=== PATIENT | male | born 1965 | race Caucasian/White ===

== ENCOUNTER 2016-07-14 16:01 | Emergency (ER) | payer MEDICAID ==
[2016-07-14 16:06] VITALS: RESP 16; TEMP 98.1
--- NOTE | 2016-07-14 16:36 | EDPHY ---
HPI/HX/ROS/PE/MDM Narrative: CHIEF COMPLAINT: Abdominal pain, vomiting. HISTORY OF PRESENT ILLNESS: The patient is a 51 year old male presenting with worsened abdominal pain. The patient reports pain to the upper abdomen that has has been present for months, but worsened today. He states it "feels like I'm having an ulcer". The patient has a history of reflux for which he has not been evaluated for. He has pain radiating up his esophagus. He states the pain improves when lying still. He developed vomiting today. He has some urinary hesitancy which is acute. He denies hematuria or dysuria. No fever, chills, chest pain, shortness of breath, palpitations, headache, lightheadedness. Patient does report some constipation recently. REVIEW OF SYSTEMS: Aside from elements discussed in the HPI, a comprehensive 10-point review of systems was reviewed and is negative. PAST MEDICAL HISTORY: Anxiety, Depression. SOCIAL HISTORY: Daily alcohol. Cigarette smoker. VITAL SIGNS: Reviewed by me GENERAL: Well-developed, well-nourished, resting comfortably in no respiratory distress. HEENT: Atraumatic. Eyes: No icterus, no injection. Mouth: moist mucous membranes. No erythema or lesions. Neck: supple with no adenopathy. LUNGS: Clear to auscultation bilaterally, no wheezes, rhonchi or rales. CARDIAC: Regular rate and rhythm, no rubs, murmurs or gallops. ABDOMEN: Soft, diffuse abdominal tenderness, worse in epigastric region and left upper quadrant. BACK: No CVA tenderness. EXTREMITIES: No trauma. No edema. Range of motion is normal throughout. NEURO: Alert and oriented, grossly nonfocal. SKIN: Warm and dry, no rash. PSYCHIATRIC: Normal mentation, no agitation. Portions of this note were transcribed by a biomedical service engineer. I personally performed a history, physical exam, medical decision making, and confirmed accuracy of information the transcribed note. ED Course: The patient is a 51-year-old male presenting with worsened abdominal pain. The patient has had upper abdominal pain for the past month. This pain became worse today with associated emesis. On exam the patient has diffuse abdominal tenderness, worse in the epigastric and left upper quadrant. The patient drinks alcohol daily. Plan for labs and fluids. IV was established, patient received IV fluids and 4mg Zofran and 1mg Dilaudid. My differential diagnosis includes but is not limited to gastric ulcer, gallstone disease, pancreatitis, constipation. I do not suspect appendicitis at this time. Lipase is normal. LFTs are normal. I ordered CT abdomen/pelvis. CT of the abdomen/pelvic was obtained. I viewed the images myself on the PACS system. No perforation. Some inflammation around duodenum. See the full radiology report in the imaging section. 6:30 p.m.: The patient is feeling better after Dilaudid. I discussed findings with the patient. He agrees with plan to discharge home. Patient received Protonix in the emergency department. He was discharged with instructions to take omeprazole, Zofran, and pain medications as needed. He was given referral to outpatient medicine as well as to Gastroenterology. He was advised to stop smoking cigarettes and to stop drinking alcohol. He was given instructions regarding a bland diet. MDM: Differential diagnosis for the patient's presenting complaint of upper abdominal pain and vomiting was considered including but not limited to cholecystitis, gastritis, peptic ulcers disease, constipation, pulmonary disease , bowel obstruction, and pancreatitis. - Data Points Imaging Results: Imaging Impressions Abdomen CT 07/14/16 17:14 Impression: 1. Duodenitis. No evidence of perforation or bowel obstruction. 2. Normal appendix. Findings discussed with Emergency Department physician, Maxine Chun M.D., on July 14, 2016 at 1825 hours. Laboratory Results: Laboratory Results 07/14/16 16:30 07/14/16 16:30 07/14/16 07/14/16 16:30 16:30 WBC 13.36 10^3/uL H 10^3/uL (3.80-9.50) RBC 6.19 10^6/uL 10^6/uL (4.40-6.38) Hgb 18.7 g/dL H g/dL (13.7-17.5) Hct 52.7 % H % (40.0-51.0) MCV 85.1 fL fL (81.5-99.8) MCH 30.2 pg pg (27.9-34.1) MCHC 35.5 g/dL g/dL (32.4-36.7) RDW 13.0 % % (11.5-15.2) Plt Count 321 10^3/uL 10^3/uL (150-400) MPV 11.0 fL fL (8.7-11.7) Neut % (Auto) 73.8 % % (39.3-74.2) Lymph % (Auto) 16.6 % % (15.0-45.0) [place] % (Auto) 7.2 % % (4.5-13.0) Eos % (Auto) 1.5 % % (0.6-7.6) Baso % (Auto) 0.5 % % (0.3-1.7) Nucleat RBC Rel Count 0.0 % % (0.0-0.2) Absolute Neuts (auto) 9.85 10^3/uL H 10^3/uL (1.70-6.50) Absolute Lymphs (auto) 2.22 10^3/uL 10^3/uL (1.00-3.00) Absolute Monos (auto) 0.96 10^3/uL H 10^3/uL (0.30-0.80) Absolute Eos (auto) 0.20 10^3/uL 10^3/uL (0.03-0.40) Absolute Basos (auto) 0.07 10^3/uL 10^3/uL (0.02-0.10) Absolute Nucleated RBC 0.00 10^3/uL 10^3/uL (0-0.01) Immature Gran % 0.4 % % (0.0-1.1) Immature Gran # 0.06 10^3/uL 10^3/uL (0.00-0.10) Sodium 140 mEq/L mEq/L (134-144) Potassium 3.8 mEq/L mEq/L (3.5-5.2) Chloride 99 mEq/L mEq/L (97-110) Carbon Dioxide 28 mEq/l mEq/l (22-31) Anion Gap 13 mEq/L mEq/L (8-16) BUN 17 mg/dL mg/dL (7-23) Creatinine 1.1 mg/dL mg/dL (0.7-1.3) Estimated GFR > 60 Glucose 97 mg/dL mg/dL (70-100) Calcium 10.8 mg/dL H mg/dL (8.5-10.4) Phosphorus 3.2 mg/dL mg/dL (2.5-4.5) Total Bilirubin 1.0 mg/dL mg/dL (0.1-1.4) Conjugated Bilirubin 0.4 mg/dL mg/dL (0.0-0.5) Unconjugated Bilirubin 0.6 mg/dL mg/dL (0.0-1.1) AST 34 IU/L IU/L (17-59) ALT 48 IU/L IU/L (21-72) Alkaline Phosphatase 76 IU/L IU/L (38-126) Total Protein 8.1 g/dL g/dL (6.3-8.2) Albumin 4.7 g/dL g/dL (3.5-5.0) Lipase 87.0 IU/L IU/L (23-300) Medications Given: Discontinued Medications Hydrocodone Bitart/Acetaminophen ([place]iparius 5/325mg [place]#6) 1 btl TAKEHOME EDNOW ONE Stop: 07/14/16 18:39 Last Admin: 07/14/16 18:47 Dose: 1 btl Hydrocodone Bitart/Acetaminophen (Riparius 5/325mg [place]#6) 1 btl TAKEHOME EDNOW ONE Stop: 07/14/16 18:40 Last Admin: 07/14/16 18:50 Dose: Not Given Hydromorphone HCl (Dilaudid) 1 mg IVP EDNOW ONE Stop: 07/14/16 16:50 Last Admin: 07/14/16 17:01 Dose: 1 mg Hydromorphone HCl (Dilaudid) 0.5 mg IVP EDNOW ONE Stop: 07/14/16 18:37 Last Admin: 07/14/16 18:50 Dose: Not Given Sodium Chloride (Ns) 1,000 mls @ 0 mls/hr IV ONCE ONE PRN Reason: Wide Open Stop: 07/14/16 16:49 Last Admin: 07/14/16 17:02 Dose: 1,000 mls Ondansetron HCl (Zofran) 4 mg IVP EDNOW ONE Stop: 07/14/16 16:50 Last Admin: 07/14/16 17:02 Dose: 4 mg Ondansetron HCl (Zofran Odt 4 Mg [place]ack#2) 1 btl TAKEHOME EDNOW ONE Stop: 07/14/16 18:39 Last Admin: 07/14/16 18:48 Dose: 1 btl Pantoprazole Sodium (Protonix) 40 mg IVP EDNOW ONE Stop: 07/14/16 18:30 Last Admin: 07/14/16 18:38 Dose: 40 mg General Time Seen by Provider: 07/14/16 16:22 Initial Vital Signs: Initial Vital Signs Temperature (C) 36.7 C 07/14/16 16:03 Heart Rate 82 07/14/16 16:03 Respiratory Rate 16 07/14/16 16:03 Blood Pressure 124/97 H 07/14/16 16:03 O2 Sat (%) 98 07/14/16 16:03 O2 Delivery Mode Room Air Allergies/Adverse Reactions: No Known Allergies Allergy (Verified 07/14/16 16:02) Home Medications: Medication Instructions Recorded Hydrocodone/APAP 5/325 [[place] 1 tab PO Q6H PRN #10 tab 07/14/16 5/325 (RX)] Ondansetron Odt [Zofran Odt 4 mg 4 mg PO Q4 PRN #10 tab 07/14/16 (*)] Pantoprazole Sodium [Protonix] 40 mg PO DAILY #20 tablet. 07/14/16 Departure - Departure Disposition: Home, Routine, Self-Care Clinical Impression: Duodenitis, Vomiting Abdominal pain Qualifiers: Abdominal location: epigastric Qualified Code(s): R10.13 - Epigastric pain Condition: Good Instructions: Hydrocodone/Acetaminophen (By mouth), Ondansetron (By mouth), Diet for Stomach Ulcers and Gastritis (ED), Duodenitis (ED) Additional Instructions: You CT today shows some inflammation around the duodenum. 1. Take Prilosec as directed. 2. Use Zofran for nausea and vomiting. 3. Take Riparius for severe pain. 4. You have been referred to a crew leader/control room operator and a primary care physician. Please arrange a followup appointment with either referral if you continue to have symptoms. Referrals: Cruzito Clifton MD [Medical Doctor] - As per Instructions Dequan Davison MD [Medical Doctor] - As per Instructions Prescriptions: Hydrocodone/APAP 5/325 [Riparius 5/325 (RX)] 1 tab PO Q6H PRN #10 tab PRN Reason: Pain Ondansetron Odt [Zofran Odt 4 mg (*)] 4 mg PO Q4 PRN #10 tab PRN Reason: nausea Pantoprazole Sodium [Protonix] 40 mg PO DAILY #20 tablet. Report Scribed for: Maxine Chun Report Scribed by: Daksha Cameron Date of Report: 07/14/16 Time of Report: 16:43
[2016-07-14] MEDS ORDERED: NS 1,000 ML IV ONE (16:48)
[2016-07-14] MEDS ORDERED: ONDANSETRON 4 MG/2 ML VIAL IVP ONE (16:49)
[2016-07-14] MEDS ORDERED: HYDROmorphONE/DILAUDID 1 MG/ML SYR IVP ONE ×2 (16:49→18:36)
[2016-07-14 17:03] LABS: ALANINE AMINOTRANSFERASE 48 IU/L (21-72); ALBUMIN 4.7 g/dL (3.5-5.0); ALKALINE PHOSPHATASE 76 IU/L (38-126); ANION GAP 13 mEq/L (8-16); ASPARTATE AMINOTRANSFERASE 34 IU/L (17-59); BILIRUBIN-CONJUGATED 0.4 mg/dL (0.0-0.5); BILIRUBIN-UNCONJUGATED 0.6 mg/dL (0.0-1.1); CALCIUM 10.8 mg/dL (8.5-10.4); CARBON DIOXIDE 28 mEq/l (22-31); CHLORIDE 99 mEq/L (97-110); CREATININE 1.1 mg/dL (0.7-1.3); GLOMERULAR FILTRATION RATE > 60; GLUCOSE 97 mg/dL (70-100); POTASSIUM 3.8 mEq/L (3.5-5.2); SODIUM 140 mEq/L (134-144); TOTAL PROTEIN 8.1 g/dL (6.3-8.2)
[2016-07-14 17:16] LABS: % IMMATURE GRANULYOCYTES 0.4 % (0.0-1.1); ABSOLUTE IMMATURE GRANULOCYTES 0.06 10^3/uL (0.00-0.10); ADD DIFF? NO; ADD MORPH? NO; ADD SCAN? NO; ATYPICAL LYMPHOCYTE FLAG 0 (0-99); FRAGMENT RBC FLAG 0 (0-99); HEMATOCRIT 52.7 % (40.0-51.0); HEMOGLOBIN 18.7 g/dL (13.7-17.5); LEFT SHIFT FLG 0 (0-99); LIPEMIA HEMOLYSIS FLAG 90 (0-99); MEAN CELL HEMOGLOBIN 30.2 pg (27.9-34.1); MEAN CELL HEMOGLOBIN CONCENTR. 35.5 g/dL (32.4-36.7); MEAN CELL VOLUME 85.1 fL (81.5-99.8); PLATELET CLUMPS FLAG 0 (0-99); PLATELET COUNT 321 10^3/uL (150-400); RED BLOOD CELL COUNT 6.19 10^6/uL (4.40-6.38)
[2016-07-14] MEDS ORDERED: IOPAMIDOL (ISOVUE-300) 100 ML BTL IV ONE (17:46)
[2016-07-14] MEDS ORDERED: PANTOPRAZOLE SODIUM 40 MG VIAL IVP ONE (18:29)
[2016-07-14] MEDS ORDERED: HYDROCOD/APAP 5/325 PREPACK#6 BTL TAKEHOME ONE ×2 (18:38→18:39)
[2016-07-14] MEDS ORDERED: ONDANSETRON 4MG PREPACK#2 BTL TAKEHOME ONE (18:38)
[2016-07-14 18:55] VITALS: BP 143/96; PULSE 95; O2SAT 97
== END 2016-07-14 18:54 | disposition home or self-care (01) ==
DX: K29.80 Duodenitis without bleeding (principal); F17.210 Nicotine dependence, cigarettes, uncomplicated
CPT/HCPCS: 96374; J1170; J2405; Q9967

== ENCOUNTER 2016-11-03 08:04 | Emergency (ER) | payer MEDICAID ==
[2016-11-03] MEDS ORDERED: NS 1,000 ML IV ONE (08:24)
[2016-11-03] MEDS ORDERED: ONDANSETRON 4 MG/2 ML VIAL IVP ONE (08:24)
[2016-11-03] MEDS ORDERED: LORazepam 2 MG/ML INJ IVP ONE (08:25)
--- NOTE | 2016-11-03 08:26 | EDPHY ---
H & P Time Seen by Provider: 11/03/16 08:16 HPI/ROS: CHIEF COMPLAINT: Abdominal pain HISTORY OF PRESENT ILLNESS: Patient had emergency department visit on 07/14/2016 which I personally reviewed. At that time CT scan showed duodenitis. Said he has been doing okay but has not seen a specialist because he can' t afford it. Yesterday he developed epigastric pain which he describes as severe and nonradiating. Associated with vomiting. No diarrhea. No recent travel or fever or trauma. REVIEW OF SYSTEMS: Eye: no change in vision ENT: no sore throat Cardiac: no chest pain or syncope Pulmonary: no cough or SOB Abdomen: HPI Musculoskeletal: no back pain Skin: no rash Neuro: no headache Constitutional: no fever : no urinary symptoms A comprehensive 10 point review of systems is otherwise negative aside from elements mentioned in the history of present illness. PAST MEDICAL HISTORY: Left ankle injury, anxiety and depression Social history: Daily alcohol General Appearance: Alert and conversant, cooperative. Eyes: No scleral icterus. ENT, Mouth: Normal mucous membranes. Respiratory: Normal respiratory effort, breath sounds equal, lungs are clear to auscultation. Cardiovascular: Regular rate and rhythm. Gastrointestinal: Mild diffuse tenderness but without rebound or guarding, bowel sounds are present. Male is normal. Neurological: Alert and oriented x3. Normally conversant. Face symmetric, normal movement and sensation in all extremities. Skin: Warm and dry, no rashes. Musculoskeletal: No peripheral edema and no joint swelling. Psychiatric: Moderately anxious. Emergency Department course/MDM: Zofran 4 mg IV, Ativan 1 mg IV, labs to include LFT and lipase. Normal saline hydration. 916: Patient is sleeping, lying on the floor in prone position, but says he is feeling better with less pain and no vomiting. 1145: Feels better, abdomen soft and nontender. Does not currently have indications for imaging. No McBurney's point tenderness. Smoking Status: Current every day smoker Constitutional: Initial Vital Signs Temperature (C) 36.9 C 11/03/16 08:10 Heart Rate 87 11/03/16 08:10 Respiratory Rate 20 11/03/16 08:10 Blood Pressure 136/108 H 11/03/16 08:10 O2 Sat (%) 94 11/03/16 08:10 O2 Delivery Mode Room Air Allergies/Adverse Reactions: No Known Allergies Allergy (Verified 11/03/16 08:09) Home Medications: Medication Instructions Recorded Hydrocodone/APAP 5/325 [[place] 1 tab PO Q6H PRN #10 tab 07/14/16 5/325 (RX)] Ondansetron Odt [Zofran Odt 4 mg 4 mg PO Q4 PRN #10 tab 07/14/16 (*)] Pantoprazole Sodium [Protonix] 40 mg PO DAILY #20 tablet. 07/14/16 Medical Decision Making Differential Diagnosis: Differential includes but not limited to appendicitis, pancreatitis, hepatitis, cholecystitis, bowel obstruction, intestinal perforation - Data Points Laboratory Results: Laboratory Results 11/03/16 08:21 11/03/16 08:21 11/03/16 11/03/16 08:21 08:21 WBC 15.47 10^3/uL H 10^3/uL (3.80-9.50) RBC 6.25 10^6/uL 10^6/uL (4.40-6.38) Hgb 18.9 g/dL H g/dL (13.7-17.5) Hct 52.9 % H % (40.0-51.0) MCV 84.6 fL fL (81.5-99.8) MCH 30.2 pg pg (27.9-34.1) MCHC 35.7 g/dL g/dL (32.4-36.7) RDW 13.4 % % (11.5-15.2) Plt Count 335 10^3/uL 10^3/uL (150-400) MPV 10.7 fL fL (8.7-11.7) Neut % (Auto) 74.6 % H % (39.3-74.2) Lymph % (Auto) 16.8 % % (15.0-45.0) [place] % (Auto) 7.1 % % (4.5-13.0) Eos % (Auto) 0.9 % % (0.6-7.6) Baso % (Auto) 0.3 % % (0.3-1.7) Nucleat RBC Rel Count 0.0 % % (0.0-0.2) Absolute Neuts (auto) 11.54 10^3/uL H 10^3/uL (1.70-6.50) Absolute Lymphs (auto) 2.60 10^3/uL 10^3/uL (1.00-3.00) Absolute Monos (auto) 1.10 10^3/uL H 10^3/uL (0.30-0.80) Absolute Eos (auto) 0.14 10^3/uL 10^3/uL (0.03-0.40) Absolute Basos (auto) 0.04 10^3/uL 10^3/uL (0.02-0.10) Absolute Nucleated RBC 0.00 10^3/uL 10^3/uL (0-0.01) Immature Gran % 0.3 % % (0.0-1.1) Immature Gran # 0.05 10^3/uL 10^3/uL (0.00-0.10) Sodium 141 mEq/L mEq/L (134-144) Potassium 4.1 mEq/L mEq/L (3.5-5.2) Chloride 101 mEq/L mEq/L (97-110) Carbon Dioxide 23 mEq/l mEq/l (22-31) Anion Gap 17 mEq/L H mEq/L (8-16) BUN 8 mg/dL mg/dL (7-23) Creatinine 0.9 mg/dL mg/dL (0.7-1.3) Estimated GFR > 60 Glucose 106 mg/dL H mg/dL (70-100) Calcium 9.8 mg/dL mg/dL (8.5-10.4) Total Bilirubin 1.1 mg/dL mg/dL (0.1-1.4) Conjugated Bilirubin 0.2 mg/dL mg/dL (0.0-0.5) Unconjugated Bilirubin 0.9 mg/dL mg/dL (0.0-1.1) AST 24 IU/L IU/L (17-59) ALT 40 IU/L IU/L (21-72) Alkaline Phosphatase 72 IU/L IU/L (38-126) Total Protein 7.4 g/dL g/dL (6.3-8.2) Albumin 4.2 g/dL g/dL (3.5-5.0) Lipase 87.0 IU/L IU/L (23-300) Medications Given: Discontinued Medications Sodium Chloride (Ns) 1,000 mls @ 0 mls/hr IV EDNOW ONE; Wide Open PRN Reason: Protocol Stop: 11/03/16 08:25 Last Admin: 11/03/16 08:31 Dose: 1,000 mls Lorazepam (Ativan Injection) 1 mg IVP EDNOW ONE Stop: 11/03/16 08:26 Last Admin: 11/03/16 08:32 Dose: 1 mg Ondansetron HCl (Zofran) 4 mg IVP EDNOW ONE Stop: 11/03/16 08:25 Last Admin: 11/03/16 08:31 Dose: 4 mg Departure - Departure Disposition: Home, Routine, Self-Care Clinical Impression: Abdominal pain Qualifiers: Abdominal location: generalized Qualified Code(s): R10.84 - Generalized abdominal pain Condition: Good Instructions: Acute Abdominal Pain (ED) Referrals: [facility],. [Clinic] - As per Instructions
[2016-11-03 08:29] LABS: % IMMATURE GRANULYOCYTES 0.3 % (0.0-1.1); ABSOLUTE IMMATURE GRANULOCYTES 0.05 10^3/uL (0.00-0.10); ADD DIFF? NO; ADD MORPH? NO; ADD SCAN? NO; ATYPICAL LYMPHOCYTE FLAG 10 (0-99); FRAGMENT RBC FLAG 10 (0-99); HEMATOCRIT 52.9 % (40.0-51.0); HEMOGLOBIN 18.9 g/dL (13.7-17.5); LEFT SHIFT FLG 0 (0-99); LIPEMIA HEMOLYSIS FLAG 90 (0-99); MEAN CELL HEMOGLOBIN 30.2 pg (27.9-34.1); MEAN CELL HEMOGLOBIN CONCENTR. 35.7 g/dL (32.4-36.7); MEAN CELL VOLUME 84.6 fL (81.5-99.8); MEAN PLATELET VOLUME 10.7 fL (8.7-11.7); PLATELET CLUMPS FLAG 10 (0-99); PLATELET COUNT 335 10^3/uL (150-400); RED BLOOD CELL COUNT 6.25 10^6/uL (4.40-6.38); RED CELL DISTRIBUTION WIDTH 13.4 % (11.5-15.2)
[2016-11-03 08:48] LABS: ALANINE AMINOTRANSFERASE 40 IU/L (21-72); ALBUMIN 4.2 g/dL (3.5-5.0); ALKALINE PHOSPHATASE 72 IU/L (38-126); ANION GAP 17 mEq/L (8-16); ASPARTATE AMINOTRANSFERASE 24 IU/L (17-59); BILIRUBIN,TOTAL 1.1 mg/dL (0.1-1.4); BILIRUBIN-CONJUGATED 0.2 mg/dL (0.0-0.5); BILIRUBIN-UNCONJUGATED 0.9 mg/dL (0.0-1.1); CALCIUM 9.8 mg/dL (8.5-10.4); CARBON DIOXIDE 23 mEq/l (22-31); CHLORIDE 101 mEq/L (97-110); CREATININE 0.9 mg/dL (0.7-1.3); GLOMERULAR FILTRATION RATE > 60; GLUCOSE 106 mg/dL (70-100); POTASSIUM 4.1 mEq/L (3.5-5.2); SODIUM 141 mEq/L (134-144); TOTAL PROTEIN 7.4 g/dL (6.3-8.2)
[2016-11-03 10:06] VITALS: RESP 16
[2016-11-03 12:25] VITALS: BP 111/77; PULSE 88; TEMP 98.4; O2SAT 96
== END 2016-11-03 12:01 | disposition home or self-care (01) ==
DX: R10.84 Generalized abdominal pain (principal); E86.9 Volume depletion, unspecified; F17.200 Nicotine dependence, unspecified, uncomplicated
CPT/HCPCS: 96374; J2060; J2405

== ENCOUNTER 2016-11-03 18:40 | Inpatient (IN) | payer MEDICAID ==
--- NOTE | 2016-11-03 19:42 | EDPHY ---
H & P Time Seen by Provider: 11/03/16 19:40 HPI/ROS: Chief complaint. Abdominal pain HPI. 51-year-old male here with abdominal pain. Several months ago he had duodenitis or he tells me a lesion on his duodenum. He did not get follow-up due to financial reasons. He is has abdominal pain that began yesterday. His both sides of his mid upper abdomen. Nausea vomiting without diarrhea. It is sharp and crampy. He has sense of fever and has had chills. No chest discomfort or trouble breathing. No urinary symptoms. ROS Constitutional. no fever/chills, no weakness Eyes. no problems with vision ENT. no sore throat, no nasal drainage Cardiovascular. no chest pain Respiratory. no shortness of breath, no cough Abdominal. Abdominal pain with nausea vomiting . no problems urinating MS. no calf pain/swelling, no neck/back pain, no joint pain Skin. no rash Lymph. no swollen glands Neuro. no headache, no dizziness, no difficulty walking or with speech Past Medical/Surgical History: Duodenitis, alcoholism, anxiety, depression Social History: Single, daily smoker, no alcohol Smoking Status: Current every day smoker Physical Exam: General Appearance: Alert well-developed male moderate distress vital signs show temp 37.3degrees with heart rate 117 Eyes: Pupils equal and round no pallor or injection. ENT, Mouth: Mucous membranes are moist. Respiratory: There are no retractions, lungs are clear to auscultation. Cardiovascular: Regular rate and rhythm. Gastrointestinal: Abdomen is soft with tenderness both sides of the mid abdomen. Normal bowel sounds. No masses Neurological: Awake and alert, sensory and motor exams grossly normal. Skin: Warm and dry, no rashes. Musculoskeletal: Neck is supple nontender. Extremities symmetrical, full range of motion. Psychiatric: Patient is oriented X 3, there is no agitation. Constitutional: Initial Vital Signs Temperature (C) 37.3 C 11/03/16 18:54 Heart Rate 117 H 11/03/16 18:54 Respiratory Rate 16 11/03/16 18:54 Blood Pressure 103/75 11/03/16 18:54 O2 Sat (%) 98 11/03/16 18:54 O2 Delivery Mode Room Air Allergies/Adverse Reactions: No Known Allergies Allergy (Verified 11/03/16 18:58) Home Medications: Medication Instructions Recorded Ondansetron Odt [Zofran Odt 4 mg 4 mg PO Q4 PRN #10 tab 07/14/16 (*)] Pantoprazole Sodium [Protonix] 40 mg PO DAILY #20 tablet. 07/14/16 Medical Decision Making - Diagnostics Imaging Results: Imaging Impressions Abdomen CT 11/03/16 19:48 Impression: 1. Suspect perforated duodenal ulcer with pneumoperitoneum in this patient with previously documented duodenitis. 2. Mild splenomegaly. 3. Small stable simple-appearing inferior right hepatic lobe cysts. 4. Normal appearance of the appendix. Findings were discussed with SALLIE MARTIN MD at 9:50 pm, and then with Dr. Israel Mchugh at 22:04, on 11/03/2016. CT abdomen and pelvis with IV contrast shows free air in the abdomen Procedures: IV normal saline Intravenous Invanz ED Course/Re-evaluation: On re-evaluation patient is stable. The patient and I discussed imaging and lab results. We discussed need for admission and surgery. He expresses understanding and agreement I consulted and discussed case with Dr. Mchugh, on-call for surgery, who will see the patient in the emergency department Differential Diagnosis: I considered colitis, appendicitis, diverticulitis, peptic ulcer disease. Patient has free air likely secondary to perforated viscus. - Data Points Laboratory Results: Laboratory Results 11/03/16 19:55 11/03/16 19:55 11/03/16 11/03/16 19:55 19:55 WBC 12.80 10^3/uL H 10^3/uL (3.80-9.50) RBC 5.53 10^6/uL 10^6/uL (4.40-6.38) Hgb 16.9 g/dL g/dL (13.7-17.5) Hct 48.1 % % (40.0-51.0) MCV 87.0 fL fL (81.5-99.8) MCH 30.6 pg pg (27.9-34.1) MCHC 35.1 g/dL g/dL (32.4-36.7) RDW 13.5 % % (11.5-15.2) Plt Count 220 10^3/uL D 10^3/uL (150-400) MPV 10.9 fL fL (8.7-11.7) Neut % (Auto) 82.3 % H % (39.3-74.2) Lymph % (Auto) 10.2 % L % (15.0-45.0) [place] % (Auto) 6.8 % % (4.5-13.0) Eos % (Auto) 0.1 % L % (0.6-7.6) Baso % (Auto) 0.2 % L % (0.3-1.7) Nucleat RBC Rel Count 0.0 % % (0.0-0.2) Absolute Neuts (auto) 10.54 10^3/uL H 10^3/uL (1.70-6.50) Absolute Lymphs (auto) 1.31 10^3/uL 10^3/uL (1.00-3.00) Absolute Monos (auto) 0.87 10^3/uL H 10^3/uL (0.30-0.80) Absolute Eos (auto) 0.01 10^3/uL L 10^3/uL (0.03-0.40) Absolute Basos (auto) 0.02 10^3/uL 10^3/uL (0.02-0.10) Absolute Nucleated RBC 0.00 10^3/uL 10^3/uL (0-0.01) Immature Gran % 0.4 % % (0.0-1.1) Immature Gran # 0.05 10^3/uL 10^3/uL (0.00-0.10) Sodium 133 mEq/L L mEq/L (134-144) Potassium 4.4 mEq/L mEq/L (3.5-5.2) Chloride 98 mEq/L mEq/L (97-110) Carbon Dioxide 22 mEq/l mEq/l (22-31) Anion Gap 13 mEq/L mEq/L (8-16) BUN 11 mg/dL mg/dL (7-23) Creatinine 1.0 mg/dL mg/dL (0.7-1.3) Estimated GFR > 60 Glucose 91 mg/dL mg/dL (70-100) Calcium 8.8 mg/dL mg/dL (8.5-10.4) Total Bilirubin 1.1 mg/dL mg/dL (0.1-1.4) Conjugated Bilirubin 0.2 mg/dL mg/dL (0.0-0.5) Unconjugated Bilirubin 0.9 mg/dL mg/dL (0.0-1.1) AST 20 IU/L IU/L (17-59) ALT 32 IU/L IU/L (21-72) Alkaline Phosphatase 51 IU/L IU/L (38-126) Total Protein 6.3 g/dL g/dL (6.3-8.2) Albumin 3.5 g/dL g/dL (3.5-5.0) Lipase 42.0 IU/L IU/L (23-300) Medications Given: Discontinued Medications Sodium Chloride (Ns) 1,000 mls @ 0 mls/hr IV EDNOW ONE; Wide Open PRN Reason: Protocol Stop: 11/03/16 19:49 Last Admin: 11/03/16 21:05 Dose: 1,000 mls Departure - Departure Disposition: [facility] Inpatient Acute Clinical Impression: Perforated peptic ulcer Condition: Fair Referrals: NONE *PRIMARY CARE P,. [Primary Care Provider] - As per Instructions
[2016-11-03] MEDS ORDERED: NS 1,000 ML IV ONE (19:48)
[2016-11-03 20:18] LABS: % IMMATURE GRANULYOCYTES 0.4 % (0.0-1.1); ABSOLUTE IMMATURE GRANULOCYTES 0.05 10^3/uL (0.00-0.10); ADD DIFF? NO; ADD MORPH? NO; ADD SCAN? NO; ATYPICAL LYMPHOCYTE FLAG 0 (0-99); FRAGMENT RBC FLAG 0 (0-99); HEMATOCRIT 48.1 % (40.0-51.0); HEMOGLOBIN 16.9 g/dL (13.7-17.5); LEFT SHIFT FLG 0 (0-99); LIPEMIA HEMOLYSIS FLAG 90 (0-99); MEAN CELL HEMOGLOBIN 30.6 pg (27.9-34.1); MEAN CELL HEMOGLOBIN CONCENTR. 35.1 g/dL (32.4-36.7); MEAN PLATELET VOLUME 10.9 fL (8.7-11.7); PLATELET CLUMPS FLAG 10 (0-99); PLATELET COUNT 220 10^3/uL (150-400); RED BLOOD CELL COUNT 5.53 10^6/uL (4.40-6.38); RED CELL DISTRIBUTION WIDTH 13.5 % (11.5-15.2)
[2016-11-03 20:32] LABS: ALANINE AMINOTRANSFERASE 32 IU/L (21-72); ALBUMIN 3.5 g/dL (3.5-5.0); ALKALINE PHOSPHATASE 51 IU/L (38-126); ANION GAP 13 mEq/L (8-16); ASPARTATE AMINOTRANSFERASE 20 IU/L (17-59); BILIRUBIN,TOTAL 1.1 mg/dL (0.1-1.4); BILIRUBIN-CONJUGATED 0.2 mg/dL (0.0-0.5); BILIRUBIN-UNCONJUGATED 0.9 mg/dL (0.0-1.1); CALCIUM 8.8 mg/dL (8.5-10.4); CARBON DIOXIDE 22 mEq/l (22-31); CHLORIDE 98 mEq/L (97-110); GLOMERULAR FILTRATION RATE > 60; GLUCOSE 91 mg/dL (70-100); POTASSIUM 4.4 mEq/L (3.5-5.2); SODIUM 133 mEq/L (134-144); TOTAL PROTEIN 6.3 g/dL (6.3-8.2)
[2016-11-03] MEDS ORDERED: IOPAMIDOL (ISOVUE-300) 100 ML BTL ONE (20:44)
[2016-11-03] MEDS ORDERED: ERTAPENEM 1 GM in NS 100 ML IV ONE (22:14)
[2016-11-03] MEDS ORDERED: BUPIVACAINE 0.5% 30 ML SDV ONE (22:29)
[2016-11-03] MEDS ORDERED: fentaNYL 100 MCG/2 ML INJ ONE (22:34)
[2016-11-03] MEDS ORDERED: PROPOFOL/EMULSION 500 MG/50 ML BOTTLE IV ONE (22:34)
--- NOTE | 2016-11-03 22:34 | PDGENHP ---
History and Physical - Chief Complaint Abdominal pain - History of Present Illness 51-year-old male presents for the 2nd time today with abdominal pain. Was evaluated in July with duodenitis, was asked to follow up with that point in time but due to financial reasons was unable to. Presented earlier this morning [place] [address]. Was subsequently hydrated and sent home. Returns this evening with persistent complaints of epigastric pain now worsening. Imaging in the emergency department consistent with intra-abdominal free air what appears to be a perforation in the 1st or 2nd portion of the duodenum consistent with perforated duodenal ulcer. Patient describes the pain as sharp, diffuse across the abdomen, worse in the epigastric region 9/10 in intensity History Information - Allergies/Home Medication List Allergies/Adverse Reactions: No Known Allergies Allergy (Verified 11/03/16 18:58) I have personally reviewed and updated: family history, medical history, social history, surgical history Past Medical History: Substance abuse - Surgical History Additional surgical history: Endorses having a heel surgery, no abdominal surgeries - Family History Positive for: non-pertinent - Social History Smoking Status: Current every day smoker Alcohol Use: Heavy Drug Use: Other (Endorses using IV, inhaled and pretty much every other drug) Review of Systems ROS: 10pt was reviewed & negative except for what was stated in HPI & below Physical Exam Temp Pulse Resp BP Pulse Ox 37.3 C 108 H 18 102/64 96 11/03/16 18:54 11/03/16 22:28 11/03/16 22:28 11/03/16 22:28 11/03/16 22:28 Constitutional: unkempt, cachectic, other (Distressed) Eyes: PERRL, anicteric sclera, EOMI Ears, Nose, Mouth, Throat: hearing normal, dry mucous membranes Cardiovascular: no murmur, rub, or gallop, other (Tachycardic) Respiratory: no respiratory distress, no rales or rhonchi, clear to auscultation Gastrointestinal: other (Soft, distended, guarding, rebound) Skin: warm, normal color, no rashes or abrasions, no fluctuance, no induration, No mottled Musculoskeletal: full muscle strength, no muscle tenderness, normal joint ROM, no joint effusions Neurologic: AAOx3 Psychiatric: interacting appropriately Lymph, Heme, Immunologic: no cervical LAD Lab Data & Imaging Review 11/03/16 19:55 11/03/16 19:55 WBC 12.80 10^3/uL (3.80-9.50) H 11/03/16 19:55 RBC 5.53 10^6/uL (4.40-6.38) 11/03/16 19:55 Hgb 16.9 g/dL (13.7-17.5) 11/03/16 19:55 Hct 48.1 % (40.0-51.0) 11/03/16 19:55 MCV 87.0 fL (81.5-99.8) 11/03/16 19:55 MCH 30.6 pg (27.9-34.1) 11/03/16 19:55 MCHC 35.1 g/dL (32.4-36.7) 11/03/16 19:55 RDW 13.5 % (11.5-15.2) 11/03/16 19:55 Plt Count 220 10^3/uL (150-400) D 11/03/16 19:55 MPV 10.9 fL (8.7-11.7) 11/03/16 19:55 Neut % (Auto) 82.3 % (39.3-74.2) H 11/03/16 19:55 Lymph % (Auto) 10.2 % (15.0-45.0) L 11/03/16 19:55 [place] % (Auto) 6.8 % (4.5-13.0) 11/03/16 19:55 Eos % (Auto) 0.1 % (0.6-7.6) L 11/03/16 19:55 Baso % (Auto) 0.2 % (0.3-1.7) L 11/03/16 19:55 Nucleat RBC Rel Count 0.0 % (0.0-0.2) 11/03/16 19:55 Absolute Neuts (auto) 10.54 10^3/uL (1.70-6.50) H 11/03/16 19:55 Absolute Lymphs (auto) 1.31 10^3/uL (1.00-3.00) 11/03/16 19:55 Absolute Monos (auto) 0.87 10^3/uL (0.30-0.80) H 11/03/16 19:55 Absolute Eos (auto) 0.01 10^3/uL (0.03-0.40) L 11/03/16 19:55 Absolute Basos (auto) 0.02 10^3/uL (0.02-0.10) 11/03/16 19:55 Absolute Nucleated RBC 0.00 10^3/uL (0-0.01) 11/03/16 19:55 Immature Gran % 0.4 % (0.0-1.1) 11/03/16 19:55 Immature Gran # 0.05 10^3/uL (0.00-0.10) 11/03/16 19:55 Sodium 133 mEq/L (134-144) L 11/03/16 19:55 Potassium 4.4 mEq/L (3.5-5.2) 11/03/16 19:55 Chloride 98 mEq/L (97-110) 11/03/16 19:55 Carbon Dioxide 22 mEq/l (22-31) 11/03/16 19:55 Anion Gap 13 mEq/L (8-16) 11/03/16 19:55 BUN 11 mg/dL (7-23) 11/03/16 19:55 Creatinine 1.0 mg/dL (0.7-1.3) 11/03/16 19:55 Estimated GFR > 60 11/03/16 19:55 Glucose 91 mg/dL (70-100) 11/03/16 19:55 Calcium 8.8 mg/dL (8.5-10.4) 11/03/16 19:55 Total Bilirubin 1.1 mg/dL (0.1-1.4) 11/03/16 19:55 Conjugated Bilirubin 0.2 mg/dL (0.0-0.5) 11/03/16 19:55 Unconjugated Bilirubin 0.9 mg/dL (0.0-1.1) 11/03/16 19:55 AST 20 IU/L (17-59) 11/03/16 19:55 ALT 32 IU/L (21-72) 11/03/16 19:55 Alkaline Phosphatase 51 IU/L (38-126) 11/03/16 19:55 Total Protein 6.3 g/dL (6.3-8.2) 11/03/16 19:55 Albumin 3.5 g/dL (3.5-5.0) 11/03/16 19:55 Lipase 42.0 IU/L (23-300) 11/03/16 19:55 Visualized and Interpreted imaging results: Yes Interpretation: CT scan, images personally reviewed. Intra-abdominal free air with what appears to be perforation of the 1st portion of the duodenum Assessment & Plan Assessment: Perforated peptic ulcer (Acute) Plan: 51-year-old male with perforated duodenal ulcer. We will plan to proceed to the operating room emergently for exploration and Aly patch closure. Discussed alcohol abstinence. Also discussed that the patient will be on lifelong antacids. Will need to workup likelihood of H pylori and treat postoperatively. Discussed with the patient that he will be NPO for a few days until we can demonstrate that the ulcer has healed.
[2016-11-03] MEDS ORDERED: PANTOPRAZOLE SODIUM 40 MG in NS 100 ML IV SCH (22:45)
[2016-11-03] MEDS ORDERED: MIDAZOLAM 2 MG/2 ML VIAL IVP ONE (22:56)
--- NOTE | 2016-11-03 22:56 | PDANEPAE ---
ANE History of Present Illness perforated duodenal ulcer here for emergent ex lap ANE Past Medical History - Cardiovascular History Hx Hypertension: No Hx Arrhythmias: No Hx Chest Pain: No Hx Coronary Artery / Peripheral Vascular Disease: No Hx CHF / Valvular Disease: No Hx Palpitations: No - Pulmonary History Hx COPD: No Hx Asthma/Reactive Airway Disease: No Hx Recent Upper Respiratory Infection: No Hx Oxygen in Use at Home: No Hx Sleep Apnea: No - Neurologic History Hx Cerebrovascular Accident: No Hx Seizures: No Hx Dementia: No - Endocrine History Hx Diabetes: No Hypothyroid: No Hyperthyroid: No Obesity: no - Renal History Hx Renal Disorders: No - Liver History Hx Hepatic Disorders: No - Neurological & Psychiatric Hx Hx Neurological and Psychiatric Disorders: No - Cancer History Hx Cancer: No - Congenital Disorder History Hx Congenital Disorders: No - GI History Hx Gastrointestinal Disorders: No - Surgical History Prior Surgeries: heel surgery ANE Review of Systems Review of systems is: negative - Exercise capacity Exercise capacity: >=4 METS ANE Patient History - Allergies Allergies/Adverse Reactions: No Known Allergies Allergy (Verified 11/03/16 18:58) - Smoking Hx Smoking Status: Current every day smoker - Alcohol Use Alcohol Use: Heavy ANE Labs/Vital Signs - Labs Result Diagrams: 11/03/16 19:55 11/03/16 19:55 - Vital Signs Blood Pressure: 102/64 Heart Rate: 108 Respiratory Rate: 18 O2 Sat (%): 96 Height: 182.88 cm Weight: 86.183 kg ANE Physical Exam - Airway Neck exam: FROM Mallampati Score: Class 1 Mouth exam: poor dentition - Pulmonary Pulmonary: no respiratory distress - Cardiovascular Cardiovascular: regular rate and rhythym - ASA Status ASA Status: II, E
[2016-11-03] MEDS ORDERED: MIDAZOLAM 2 MG/2 ML VIAL ONE (22:57)
[2016-11-03] MEDS ORDERED: LR 1,000 ML IV SCH (23:00)
[2016-11-03] MEDS ORDERED: BACITRACIN 50,000 UNITS/10 ML SYR IRR ONE (23:02)
[2016-11-03] MEDS ORDERED: METHYLENE BLUE 0.5% 50 MG/10 ML AMP ONE (23:02)
[2016-11-03] MEDS ORDERED: BUPIVACAINE/EPI 0.25% 30 ML SDV ONE (23:13)
[2016-11-03] MEDS ORDERED: ONDANSETRON 4 MG/2 ML VIAL IVP PRN (23:32)
[2016-11-03] MEDS ORDERED: DEXAMETHASONE 4 MG/ML VIAL IVP PRN (23:32)
[2016-11-03] MEDS ORDERED: PROMETHAZINE HCL 25 MG/ML INJ IVP PRN (23:32)
[2016-11-03] MEDS ORDERED: NALOXONE HCL 0.4 MG/ML INJ IVP PRN (23:32)
[2016-11-03] MEDS ORDERED: fentaNYL 100 MCG/2 ML INJ IVP PRN (23:32)
[2016-11-03] MEDS ORDERED: HYDROmorphONE/DILAUDID 1 MG/ML SYR IVP PRN (23:32)
[2016-11-03] MEDS ORDERED: LR 500 ML IV PRN (23:32)
[2016-11-04] MEDS ORDERED: HYDROmorphONE/DILAUDID 2 MG/ML INJ ONE (00:03)
[2016-11-04] MEDS ORDERED: SUGAMMADEX SODIUM 200 MG/2 ML VIAL IVP ONE (00:04)
[2016-11-04] MEDS ORDERED: PHENYLEPHRINE HCL 100 MCG/ML SYR ONE (00:04)
[2016-11-04] MEDS ORDERED: fentaNYL 100 MCG/2 ML INJ ONE ×2 (00:12→01:00)
[2016-11-04] MEDS ORDERED: PROPOFOL 200 MG/20 ML VIAL ONE (00:18)
[2016-11-04] MEDS ORDERED: ONDANSETRON 4 MG/2 ML VIAL IVP PRN (00:30)
[2016-11-04] MEDS ORDERED: PROMETHAZINE HCL 25 MG/ML INJ IVP PRN (00:30)
--- NOTE | 2016-11-04 00:30 | POSTOPPROG ---
Post Op Note Date of Operation: 11/04/16 Surgeon: Israel Mchugh Anesthesiologist: Faheem Anesthesia: GET(General Endotracheal) Pre-op Diagnosis: Perforated viscus Post-op Diagnosis: Perforated duodenal ulcer Procedure: ex lap, washout, Aly patch of perfd duodenal ulcer Findings: small cm defect in ant 1st portion of duo Inf/Abcess present in the surg proc area at time of surgery?: Yes Depth: Organ Space EBL: Minimal Total fluids administered: 3000cc washout
--- NOTE | 2016-11-04 00:31 | POSTANESTH ---
Post Anesthetic Evaluation Cardiovascular Status: Normal, Stable Respiratory Status: Normal, Stable Level of Consciousness/Mental Status: Mildly Sleepy, Arousable Pain Control: Adequate, Prn Tx Ordered Nausea/Vomiting Control: Adequate, Prn Tx Ordered Complications Possibly Related to Anesthesia: None Noted
[2016-11-04] MEDS ORDERED: NALOXONE HCL 0.4 MG/ML INJ IVP PRN (00:34)
[2016-11-04] MEDS: HYDROmorphONE/DILAUDID 6 MG/30 ML PCA IV PRN (02:04)
[2016-11-04] MEDS: NS 1,000 ML IV SCH ×3 (02:16→18:34)
[2016-11-04 05:08] LABS: % IMMATURE GRANULYOCYTES 0.3 % (0.0-1.1); ABSOLUTE IMMATURE GRANULOCYTES 0.04 10^3/uL (0.00-0.10); ADD DIFF? NO; ADD MORPH? NO; ADD SCAN? NO; ATYPICAL LYMPHOCYTE FLAG 0 (0-99); FRAGMENT RBC FLAG 0 (0-99); HEMATOCRIT 42.3 % (40.0-51.0); HEMOGLOBIN 14.7 g/dL (13.7-17.5); LEFT SHIFT FLG 10 (0-99); LIPEMIA HEMOLYSIS FLAG 90 (0-99); MEAN CELL HEMOGLOBIN 30.5 pg (27.9-34.1); MEAN CELL HEMOGLOBIN CONCENTR. 34.8 g/dL (32.4-36.7); MEAN CELL VOLUME 87.8 fL (81.5-99.8); MEAN PLATELET VOLUME 10.7 fL (8.7-11.7); PLATELET CLUMPS FLAG 0 (0-99); PLATELET COUNT 181 10^3/uL (150-400); RED BLOOD CELL COUNT 4.82 10^6/uL (4.40-6.38); RED CELL DISTRIBUTION WIDTH 13.6 % (11.5-15.2)
[2016-11-04 05:36] LABS: ANION GAP 9 mEq/L (8-16); CALCIUM 8.1 mg/dL (8.5-10.4); CARBON DIOXIDE 23 mEq/l (22-31); CHLORIDE 106 mEq/L (97-110); CREATININE 0.8 mg/dL (0.7-1.3); GLOMERULAR FILTRATION RATE > 60; GLUCOSE 90 mg/dL (70-100); POTASSIUM 4.5 mEq/L (3.5-5.2); SODIUM 138 mEq/L (134-144)
--- NOTE | 2016-11-04 07:18 | GOP ---
[f rep st] OPERATIVE REPORT DATE OF OPERATION: 11/03/2016 SURGEON: Israel Mchugh MD FENCE BUILDER: None. ANESTHESIA: General endotracheal. ANESTHESIOLOGIST: Dr. Mayen. PREOPERATIVE DIAGNOSIS: Perforated viscus. POSTOPERATIVE DIAGNOSIS: Perforated duodenal ulcer. PROCEDURE PERFORMED: 1. Exploratory laparotomy. 2. Abdominal washout. 3. Omental pedicle Aly patch repair of perforated duodenal ulcer. FINDINGS: I identified an approximate 1 cm defect in the anterior portion of the 1st portion of the duodenal, distal to the pylorus. The edges appeared viable and successfully repaired it with a Aly patch of omentum. Leak test negative x2. SPECIMENS: None. ESTIMATED BLOOD LOSS: 5 cc. DESCRIPTION OF PROCEDURE: The patient was greeted in the preoperative suite. Once again, risks, benefits, and alternatives were discussed. The consent was signed. He was then brought back to the operative suite, placed on the OR table in supine position. After all anesthesia machines, including SCDs, were on and functioning, a [employer] time-out was performed. General endotracheal anesthesia was then induced without incident. Antibiotics were given on-call to the operating room. After successful induction, the patient's abdomen was widely prepped and draped in typical sterile fashion. I commenced the procedure by making a midline incision, extending it from the xiphoid all the way down to the umbilicus. I carried it down through the subcutaneous tissue and entered the abdomen sharply. Once successfully in the abdomen, I turned my attention toward the epigastrium. I identified the stomach in its transition into the duodenal. There were some fatty adhesions here from the patient's chronic inflammatory process. I took down some small thin filmy adhesions and identified a 1 cm perforation in the anterior portion of the duodenum, approximately 4 cm and probably 3 cm distal to the pylorus. Once this was identified I then inspected the remainder of the stomach and visible portions of the duodenum and found no other pathology. I then irrigated the patient's abdomen with 3 L normal saline with antibiotic impregnation. Once I was happy that the entire abdomen had been irrigated, I turned my attention back to the duodenum. Prior to my repair I identified a portion of omentum which was thick and had an adequate blood supply. Then using multiple interrupted 2-0 silk sutures, I then laid them on either side of the duodenal perforation. Over the perforation I laid my omental tongue and successfully tied the silk sutures down, noting excellent fat to serosa reapproximation. After this was done, I achieved hemostasis with some gentle pressure in the wall of the duodenum. After I was happy with that I checked the nasogastric tube placement, which was noted to be good. I then had the Anesthesiologist insufflate the nasogastric tube with air. The stomach distended, the duodenum distended, and I had no appreciable leak or air bubbles at the repair site. Once this was done, I removed the remainder of the irrigant, again inspected for any other discernible pathology. I then turned my attention toward closing. I closed the fascia with a #1 PDS in a running fashion noting excellent fascial reapproximation. Subcutaneous tissue was irrigated with warm normal saline. I instilled 0.25% Marcaine with epinephrine into the fascia and the skin was closed with amrik. Sterile dressings were placed. The patient was then extubated in the operative suite and taken to the PACU in satisfactory condition. DRAINS: None. COUNTS: All counts were reported as correct x2. /[id number]/MODL MTDD
[2016-11-04] MEDS: ERTAPENEM 1 GM in NS 100 ML IV SCH (08:35)
[2016-11-04] MEDS: PANTOPRAZOLE SODIUM 40 MG in NS 100 ML IV SCH ×2 (09:40→21:31)
[2016-11-04] MEDS ORDERED: PHENOL 177 ML THROAT SPRAY PO PRN (10:33)
[2016-11-04] MEDS ORDERED: LORazepam 2 MG/ML INJ IVP PRN (10:35)
[2016-11-04] MEDS ORDERED: LORazepam 2 MG/ML INJ IVP ONE (10:35)
--- NOTE | 2016-11-04 10:47 | SOAPPROG ---
SOAP Progress Note Assessment/Plan: Assessment/Plan: 51yo M POD#1 s/p ex-lap, repair perfd duo - Pain controlled, starting CIWA for EtOH abuse. Denies ever having withdrawal in the past and states last drink was 4 days ago. - NGT to LIWS. Strict NPO - BS Abx, H pylori pending. Have asked Dr Mosley to assist with management - OOBTC, ambulate. 11/04/16 10:43 Subjective: doing ok, wants ice chips Objective: Vital Signs Temp Pulse Resp BP Pulse Ox 36.7 C 85 18 95/74 L 99 11/04/16 07:25 11/04/16 07:25 11/04/16 07:25 11/04/16 07:25 11/04/16 07:25 Laboratory Results 11/04/16 04:52 11/04/16 04:52 11/03/16 11/04/16 11/05/16 05:59 05:59 05:59 Intake Total 3125 Output Total 1530 200 Balance 1595 -200 ICD10 Worksheet Patient Problems: Problems Problem Status Onset Perforated peptic ulcer Acute
--- NOTE | 2016-11-04 13:14 | GCON ---
[f rep st] CONSULTATION INFECTIOUS DISEASE CONSULTATION DATE OF CONSULTATION: 11/04/2016 REFERRING PHYSICIAN: Israel Mchugh MD REASON FOR CONSULTATION: Antibiotic management in the setting of perforated duodenal ulcer. HISTORY OF PRESENT ILLNESS: The patient is a 51-year-old male with a past medical history of alcoho l abuse, who I am asked to see in consultation for antibiotic management in the setting of perforate d duodenal ulcer. The patient previously had been evaluated in July with a diagnosis of duodenitis . He had been taking episodic Prilosec for the above symptoms. The patient on the day prior to his admission developed increasing epigastric pain with radiation to both shoulders. He had associated nausea with vomiting. He does not note any associated fevers. The patient has a history of signif icant alcohol intake, and notes that he has been decreasing this recently. Given his symptoms, he w as seen in the Emergency Department, where he underwent CT scan of the abdomen and pelvis, which maye wed pneumoperitoneum with enhancement of the duodenal bulb with inflammation of the surrounding fat suggestive of perforation. There were small amounts of free fluid in the pericolic gutters. The pa linda was taken to the operating room, where he underwent exploratory laparotomy with findings of pe rforated duodenal ulcer. The patient underwent patching of the duodenal ulcer and irrigation of the abdominal cavity. The patient has been empirically started on ertapenem. Given the above findings , I am now asked to assist in his ongoing management. PAST MEDICAL HISTORY: Duodenitis as outlined above, alcoholism. PAST SURGICAL HISTORY: As above. CURRENT MEDICATIONS: Ertapenem 1 g IV daily, Dilaudid VAMP MAKER, Protonix 40 mg IV twice daily. ALLERGIES: No known drug allergies. SOCIAL HISTORY: The patient smokes 4-5 cigarettes daily. He describes typically drinking one-fifth of alcohol daily, but notes he is drinking less prior to admission. He notes ongoing use of drugs including occasional smoked methamphetamine. He denies any injection drug use. FAMILY HISTORY: Noncontributory. REVIEW OF SYSTEMS: The patient notes that he has had some difficulty with his teeth recently. Unle ss otherwise noted, the remainder of a 10 system review is unremarkable. PHYSICAL EXAMINATION: VITAL SIGNS: Temperature maximum 37.7, temperature current 36.7, heart rate 85, respiratory rate 18, blood pressure 95/74, oxygen saturation 99% on 3 L. GENERAL: The patient is well nourished, well developed, in no acute distress. He appears nontoxic. HEENT: There is no scleral icterus, conjunctival injection, or conjunctival petechiae. Oropharynx shows dry mucous mem branes with dentition being in poor repair. There is no nasal discharge. There is no tenderness ov er the frontal, maxillary, or mastoid area. NECK: Supple without palpable lymphadenopathy or thyro megaly. CHEST: Clear to auscultation bilaterally without adventitious sounds. Respiratory effort is normal. CARDIOVASCULAR: Regular rate and rhythm without murmurs, gallops, or rubs. ABDOMEN: S oft, nontender, nondistended with postoperative dressing in place. No palpable organomegaly. MUSCU LOSKELETAL: No cyanosis, clubbing, or edema. SKIN: No stigmata of endocarditis. SKIN: Warm and dry to touch. LYMPHATICS: No cervical or supraclavicular nodes. NEUROLOGIC: Patient is alert and interacts appropriately with examiner. Cranial nerves 2-12 are grossly intact. Sensation is gross ly intact. Muscle tone and bulk are normal. LABORATORY DATA: White blood cell count 11.6, hematocrit 42.3, platelets 181, neutrophils 78%, crea tinine 0.8, AST 20, ALT 32, alkaline phosphatase 51, bilirubin 1.1, albumin 3.5, lipase 42. CT scan as outlined above and was reviewed and interpreted by me today. IMPRESSION: Perforated duodenal ulcer, status post patch repair with irrigation of abdomen. The pa tient is currently receiving ertapenem postoperatively, which targets typical organisms such as orop haryngeal delfina and enteric gram-negative rods. No active ongoing signs of peritonitis present. Op erative findings reviewed with Dr. Mchugh. RECOMMENDATIONS: 1. Agree with continued ertapenem, and anticipate short course of antibiotic therapy postoperativel y as long as the patient shows continued clinical improvement. 2. The patient likely will require treatment for H pylori once he has recovered. 3. HIV antibody testing in the setting of ongoing drug use. 4. We will assess hepatitis serologies also in the setting of drug use. Thank you for this consultation. We will continue to follow the patient with you. /[id number]/MODL
[2016-11-05] MEDS: NS 1,000 ML IV SCH (03:14)
[2016-11-05 05:08] LABS: % IMMATURE GRANULYOCYTES 0.4 % (0.0-1.1); ABSOLUTE IMMATURE GRANULOCYTES 0.04 10^3/uL (0.00-0.10); ADD DIFF? NO; ADD MORPH? NO; ADD SCAN? NO; ATYPICAL LYMPHOCYTE FLAG 10 (0-99); FRAGMENT RBC FLAG 0 (0-99); HEMATOCRIT 46.1 % (40.0-51.0); HEMOGLOBIN 15.6 g/dL (13.7-17.5); LEFT SHIFT FLG 0 (0-99); LIPEMIA HEMOLYSIS FLAG 90 (0-99); MEAN CELL HEMOGLOBIN 30.2 pg (27.9-34.1); MEAN CELL HEMOGLOBIN CONCENTR. 33.8 g/dL (32.4-36.7); MEAN CELL VOLUME 89.2 fL (81.5-99.8); PLATELET CLUMPS FLAG 20 (0-99); PLATELET COUNT 209 10^3/uL (150-400); RED BLOOD CELL COUNT 5.17 10^6/uL (4.40-6.38); RED CELL DISTRIBUTION WIDTH 13.3 % (11.5-15.2)
[2016-11-05 05:18] LABS: ANION GAP 12 mEq/L (8-16); CALCIUM 8.4 mg/dL (8.5-10.4); CARBON DIOXIDE 20 mEq/l (22-31); CHLORIDE 103 mEq/L (97-110); CREATININE 0.8 mg/dL (0.7-1.3); GLOMERULAR FILTRATION RATE > 60; GLUCOSE 49 mg/dL (70-100); MAGNESIUM 1.7 mg/dL (1.6-2.3); POTASSIUM 4.6 mEq/L (3.5-5.2); SODIUM 135 mEq/L (134-144)
[2016-11-05] MEDS: D5W 1/2 NS W/ 20 KCl/L 1,000 ML IV SCH ×3 (06:35→20:33)
[2016-11-05] MEDS: PANTOPRAZOLE SODIUM 40 MG in NS 100 ML IV SCH ×2 (08:17→20:33)
[2016-11-05] MEDS: ERTAPENEM 1 GM in NS 100 ML IV SCH (09:12)
[2016-11-05] MEDS: HYDROmorphONE/DILAUDID 6 MG/30 ML PCA IV PRN (10:28)
--- NOTE | 2016-11-05 11:00 | SOAPPROG ---
SOAP Progress Note Assessment/Plan: Assessment: s/p laparotomy and repair of perforated duodenal ulcer Continue NG Hypoglycemic today. Gave 1/2 amp D50 and changed IV fluids to D5 1/2 NS with 20 meq Kcl Continue Invanz - likely short coarse Awaiting HPylori S: Feeling well. No flatus O: Dressing CDI BS hypoactive/ Soft, appropriately tender Scant output in NG Clear bilaterally Regular rate Plan: 11/05/16 10:57 Objective: Vital Signs Temp Pulse Resp BP Pulse Ox 36.6 C 88 18 123/80 H 100 11/05/16 10:00 11/05/16 10:00 11/05/16 10:00 11/05/16 10:00 11/05/16 10:00 Laboratory Results 11/05/16 04:22 11/05/16 04:22 11/04/16 11/05/16 11/06/16 05:59 05:59 05:59 Intake Total 3125 2800 Output Total 1530 1600 400 Balance 1595 1200 -400 ICD10 Worksheet Patient Problems: Problems Problem Status Onset Perforated peptic ulcer Acute
[2016-11-05 13:55] LABS: HEPATITIS Bs Ab QUANT <5.0 mIU/mL
[2016-11-06 05:06] LABS: % IMMATURE GRANULYOCYTES 0.3 % (0.0-1.1); ABSOLUTE IMMATURE GRANULOCYTES 0.02 10^3/uL (0.00-0.10); ADD DIFF? NO; ADD MORPH? NO; ADD SCAN? NO; ATYPICAL LYMPHOCYTE FLAG 0 (0-99); FRAGMENT RBC FLAG 0 (0-99); HEMATOCRIT 43.4 % (40.0-51.0); HEMOGLOBIN 15.1 g/dL (13.7-17.5); LEFT SHIFT FLG 0 (0-99); LIPEMIA HEMOLYSIS FLAG 90 (0-99); MEAN CELL HEMOGLOBIN 30.2 pg (27.9-34.1); MEAN CELL HEMOGLOBIN CONCENTR. 34.8 g/dL (32.4-36.7); MEAN CELL VOLUME 86.8 fL (81.5-99.8); MEAN PLATELET VOLUME 10.2 fL (8.7-11.7); PLATELET CLUMPS FLAG 20 (0-99); PLATELET COUNT 213 10^3/uL (150-400); RED CELL DISTRIBUTION WIDTH 13.1 % (11.5-15.2)
[2016-11-06 05:31] LABS: ANION GAP 6 mEq/L (8-16); CALCIUM 8.4 mg/dL (8.5-10.4); CARBON DIOXIDE 25 mEq/l (22-31); CHLORIDE 104 mEq/L (97-110); CREATININE 0.7 mg/dL (0.7-1.3); GLOMERULAR FILTRATION RATE > 60; GLUCOSE 96 mg/dL (70-100); MAGNESIUM 1.7 mg/dL (1.6-2.3); POTASSIUM 4.1 mEq/L (3.5-5.2); SODIUM 135 mEq/L (134-144)
[2016-11-06] MEDS: PANTOPRAZOLE SODIUM 40 MG in NS 100 ML IV SCH ×2 (07:49→20:06)
[2016-11-06] MEDS: D5W 1/2 NS W/ 20 KCl/L 1,000 ML IV SCH ×3 (07:52→18:10)
[2016-11-06] MEDS: ERTAPENEM 1 GM in NS 100 ML IV SCH (08:39)
--- NOTE | 2016-11-06 11:43 | SOAPPROG ---
SOAP Progress Note Assessment/Plan: Assessment: s/p laparotomy and repair of perforated duodenal ulcer Dicontinue NG Continue Invanz - likely short course - off today or tomorrow Awaiting HPylori S: Feeling well. No flatus. eager for croatian fries or mashed potatoes O: Incision CDI BS present/ Soft, appropriately tender Clear bilaterally Regular rate Plan: 11/05/16 10:57 11/06/16 11:42 Objective: Vital Signs Temp Pulse Resp BP Pulse Ox 36.6 C 85 16 112/82 H 98 11/06/16 08:23 11/06/16 08:23 11/06/16 08:23 11/06/16 08:23 11/06/16 08:23 Laboratory Results 11/06/16 04:42 11/06/16 04:42 11/05/16 11/06/16 11/07/16 05:59 05:59 05:59 Intake Total 2800 2902.2 Output Total 1600 1550 600 Balance 1200 1352.2 -600 ICD10 Worksheet Patient Problems: Problems Problem Status Onset Perforated peptic ulcer Acute
[2016-11-06] MEDS: HYDROmorphONE/DILAUDID 6 MG/30 ML PCA IV PRN (16:10)
[2016-11-07] MEDS: D5W 1/2 NS W/ 20 KCl/L 1,000 ML IV SCH ×2 (02:19→13:42)
[2016-11-07 05:17] LABS: % IMMATURE GRANULYOCYTES 0.3 % (0.0-1.1); ABSOLUTE IMMATURE GRANULOCYTES 0.02 10^3/uL (0.00-0.10); ADD DIFF? NO; ADD MORPH? NO; ADD SCAN? NO; ANION GAP 11 mEq/L (8-16); ATYPICAL LYMPHOCYTE FLAG 20 (0-99); CALCIUM 9.1 mg/dL (8.5-10.4); CARBON DIOXIDE 25 mEq/l (22-31); CHLORIDE 103 mEq/L (97-110); CREATININE 0.8 mg/dL (0.7-1.3); FRAGMENT RBC FLAG 0 (0-99); GLOMERULAR FILTRATION RATE > 60; GLUCOSE 96 mg/dL (70-100); HEMATOCRIT 48.8 % (40.0-51.0); LEFT SHIFT FLG 0 (0-99); LIPEMIA HEMOLYSIS FLAG 90 (0-99); MAGNESIUM 1.8 mg/dL (1.6-2.3); MEAN CELL HEMOGLOBIN 30.5 pg (27.9-34.1); MEAN CELL HEMOGLOBIN CONCENTR. 34.8 g/dL (32.4-36.7); MEAN CELL VOLUME 87.6 fL (81.5-99.8); MEAN PLATELET VOLUME 10.4 fL (8.7-11.7); PLATELET CLUMPS FLAG 0 (0-99); PLATELET COUNT 268 10^3/uL (150-400); POTASSIUM 4.4 mEq/L (3.5-5.2); RED BLOOD CELL COUNT 5.57 10^6/uL (4.40-6.38); RED CELL DISTRIBUTION WIDTH 13.2 % (11.5-15.2); SODIUM 139 mEq/L (134-144)
[2016-11-07] MEDS: ERTAPENEM 1 GM in NS 100 ML IV SCH (08:28)
--- NOTE | 2016-11-07 08:59 | SOAPPROG ---
HOPE Progress Note Assessment/Plan: Assessment/Plan: 51yo M POD#4 s/p ex-lap, repair perfd duo - Pain controlled on END FINDER TWISTING DEPARTMENT, added oral [place] today. CIWA still in place although doesnt appear to be withdrawing - Abdomen is soft, incision is c/d/i, has some decent bowel sounds. Will advance to clears today - If we can get to reg diet tomorrow, likely home then. Will touch base with ID Re length of abx, H pylori still pending. 11/04/16 10:43 11/07/16 08:58 Subjective: Doing well, doesnt appear to be withdrawing from EtOH. Hungry. Objective: Vital Signs Temp Pulse Resp BP Pulse Ox 36.7 C 72 19 117/80 96 11/07/16 04:00 11/07/16 04:00 11/07/16 04:00 11/07/16 04:00 11/07/16 04:00 Laboratory Results 11/07/16 04:43 11/07/16 04:43 11/06/16 11/07/16 11/08/16 05:59 05:59 05:59 Intake Total 2902.2 3550 Output Total 1550 2600 Balance 1352.2 950 ICD10 Worksheet Patient Problems: Problems Problem Status Onset Perforated peptic ulcer Acute
[2016-11-07] MEDS: PANTOPRAZOLE SODIUM 40 MG in NS 100 ML IV SCH ×2 (09:46→21:15)
[2016-11-07] MEDS: HYDROCODONE/APAP 5/325 TAB PO PRN ×3 (15:20→22:37)
--- NOTE | 2016-11-07 19:31 | PCMIDPN ---
Assessment/Plan: Assessment/Plan: * Perforated duodenal ulcer status post repair: Clinically improved postoperatively. Now has completed 5 days of ertapenem. Will discontinue ertapenem as suspect benefit has been achieved. Will have patient follow-up with me post discharge for treatment of H pylori as high likelihood contributing. 11/07/16 19:29 Subjective: Patient feels significantly improved. Starting clear liquid diet. Objective: Vital Signs Temp Pulse Resp BP Pulse Ox 37.1 C 72 14 114/68 96 11/07/16 15:48 11/07/16 15:48 11/07/16 15:48 11/07/16 15:48 11/07/16 15:48 Laboratory Results 11/07/16 04:43 11/07/16 04:43 11/06/16 11/07/16 11/08/16 05:59 05:59 05:59 Intake Total 2902.2 3550 1596 Output Total 1550 2600 600 Balance 1352.2 950 996 Ertapenem # 5 - Physical Exam General Appearance: alert, no apparent distress EENT: pharynx normal, No scleral icterus Respiratory: lungs clear, No respiratory distress Cardiac/Chest: regular rate, rhythm Abdomen: non-tender, other ( staple line intact without erythema or drainage), No distended ICD10 Worksheet Patient Problems: Problems Problem Status Onset Perforated peptic ulcer Acute
[2016-11-08] MEDS: HYDROCODONE/APAP 5/325 TAB PO PRN (05:37)
[2016-11-08 08:25] VITALS: BP 103/65; PULSE 74; RESP 16; TEMP 97.6; O2SAT 92
--- NOTE | 2016-11-08 08:57 | SOAPPROG ---
SOAP Progress Note Assessment/Plan: Assessment/Plan: 51yo M POD#4 s/p ex-lap, repair perfd duo - Pain now well controlled with [place] alone, Rx left in patients chart - Tolerating clears, will ADAT today. Ordered fries for breakfast - If does well this AM, planning dc this afternoon. Discussed EtOH abstinence, avoidance of NSAIDS, need to take antacids and need for follow up to complete H pylori Tx 11/04/16 10:43 11/07/16 08:58 11/08/16 08:56 Subjective: Looks good, feels well. Pain controlled off PATIENT RESOURCE SPECIALIST Objective: Vital Signs Temp Pulse Resp BP Pulse Ox 36.4 C 74 16 103/65 92 11/08/16 08:23 11/08/16 08:23 11/08/16 08:23 11/08/16 08:23 11/08/16 08:23 Laboratory Results 11/07/16 04:43 11/07/16 04:43 11/07/16 11/08/16 11/09/16 05:59 05:59 05:59 Intake Total 3550 2096 Output Total 2600 600 Balance 950 1496 ICD10 Worksheet Patient Problems: Problems Problem Status Onset Perforated peptic ulcer Acute
[2016-11-08] MEDS: PANTOPRAZOLE SODIUM 40 MG in NS 100 ML IV SCH (09:15)
--- NOTE | 2016-11-08 11:39 | PDDCSUM ---
Discharge Summary Discharge Summary: DISCHARGE SUMMARY Date of Admission November 03 Date of Discharge November 08 DISCHARGE DIAGNOSES - perforated duodenal ulcer - likely active H pylori infection, pending HOSPITAL COURSE The patient was admitted from the ED and taken to the operating room where they underwent an uneventful open repair of perforated duodenum with Aly patch. They were subsequently taken to the PACU and then the general medical floor. He remained on nasogastric tube suction for 48 hours, this was then removed. His diet was advanced initially to a clear liquid diet which was well tolerated. The hospital course was uneventful, their diet was advanced to a regular diet which was well tolerated and their pain was well controlled. They were discharged home in stable condition on November 08 DISCHARGE MEDICATIONS [place] 5-325 1-2 every 4-6 as needed for pain Omeprazole 20 mg daily DISPOSITION Home FOLLOW UP Follow up with me in the office in 10-14 days for a general post-operative visit Will follow up with Dr. Mosley in the Infectious Disease office to receive his formal treatment for H pylori
== END 2016-11-08 12:55 | disposition home or self-care (01) | DRG 331 ==
LOC: F3N 11-04 01:10
PROVIDERS: ADMIT Surgery; ATTEND Surgery
PROC: 0DU90JZ Supplement Duodenum with Synthetic Substitute, Open Approach (ICD-10-PCS; principal; 2016-11-03 23:00)
DX: K26.1 Acute duodenal ulcer with perforation (principal); B96.81 Helicobacter pylori [H. pylori] as the cause of diseases classified elsewhere; F17.210 Nicotine dependence, cigarettes, uncomplicated
CPT/HCPCS: 86704-90; 96374; G0472; J1170; J1335; J2060; J2250; J2370; J2405; J2704; J3010; Q9967; Q9968

== ENCOUNTER 2018-04-21 22:57 | Emergency (ER) | payer MEDICAID ==
--- NOTE | 2018-04-22 00:14 | EDPHY ---
H & P Stated Complaint: BILAT FEET SWELLING FOR SEVERAL DAYS Time Seen by Provider: 04/22/18 00:00 HPI/ROS: HPI The patient presents with bilateral feet swelling for the last several days. Patient is homeless and walk several miles each day. He has had progressive edema with redness of both of his feet. He says his shoes do not fit well. He has been trying to change his socks daily. He has a history of a left calcaneal fracture status post ORIF about 10 years ago. He has not any fevers or chills. He has had some blisters on his feet which have opened over the last few days.. REVIEW OF SYSTEMS 10 systems were reviewed and negative with the exception of the elements mentioned in the history of present illness. PMHx: History of hand cellulitis requiring admission. History of perforated peptic ulcer Soc Hx: Homeless PHYSICAL General Appearance: Alert, no distress Eyes: Pupils equal and round no pallor or injection ENT, Mouth: Mucous membranes moist Respiratory: There are no retractions, lungs are clear to auscultation Cardiovascular: Regular rate and rhythm Gastrointestinal: Abdomen is soft and non-tender, no masses, bowel sounds normal Neurological: A&O, moves all extremities Skin: Warm and dry, no rashes Musculoskeletal: Neck is supple non tender Extremities: 1+ lower extremity edema bilaterally in the mid paulino, feet are diffusely erythematous though nontender to palpation, pulses are 2+ DP, there is no tenderness of the feet Psychiatric: Patient is oriented X 3, there is no agitation Source: Patient Exam Limitations: No limitations - Personal History Current Tetanus/Diphtheria Vaccine: Unsure Tetanus Vaccine Date: 2003 - Medical/Surgical History Hx Asthma: No Hx Chronic Respiratory Disease: No Hx Diabetes: No Hx Cardiac Disease: No Hx Renal Disease: No Hx Cirrhosis: No Hx Alcoholism: Yes Hx HIV/AIDS: No Hx Splenectomy or Spleen Trauma: No Other PMH: L ankle SURG, alcoholism, h-pylori, DUODENAL ULCER PERF, "bad circulation", anxiety/depression - Social History Smoking Status: Current every day smoker Constitutional: Initial Vital Signs Temperature (C) 36.8 C 04/21/18 23:06 Heart Rate 100 04/21/18 23:06 Respiratory Rate 18 04/21/18 23:06 Blood Pressure 131/87 H 04/21/18 23:06 O2 Sat (%) 96 04/21/18 23:06 O2 Delivery Mode Room Air Allergies/Adverse Reactions: No Known Allergies Allergy (Verified 04/21/18 23:05) Home Medications: Medication Instructions Recorded NK [No Known Home Meds] 04/21/18 Medical Decision Making - Diagnostics Imaging Results: X-ray left foot shows calcaneal hardware in good position, no fractures, interpreted by me, radiology interpretation is pending. Differential Diagnosis: 53-year-old homeless male with new lower extremity bilateral edema for the last several days. Getting progressively worse. Patient is able to walk and has minimal pain. He does have a history of a left calcaneal fracture. He does not have any fevers. He does not have any shortness of breath. Patient had labs checked in the emergency department which demonstrated a sodium of 160. When I discussed this with the patient, he said that he had just eaten a bag of chips prior to having his blood work obtained. Here, I had him drink a cup of water and repeated his sodium and it was 143. I feel that that sodium was transient and related to his p.o. Intake. The remainder of his labs were normal. His x-ray showed hardware in good position. I suspect his leg swelling is due to prolonged ambulation. I have discussed good foot hygiene with him. He will be discharged from the emergency department. - Data Points Laboratory Results: Laboratory Results 04/22/18 00:15 04/22/18 00:15 04/22/18 04/22/18 04/22/18 01:58 00:15 00:15 WBC 7.60 10^3/uL 10^3/uL (3.80-9.50) RBC 4.45 10^6/uL 10^6/uL (4.40-6.38) Hgb 13.3 g/dL L g/dL (13.7-17.5) POC Hgb 13.9 gm/dL gm/dL (13.7-17.5) Hct 39.9 % L % (40.0-51.0) POC Hct 41 % % (40-51) MCV 89.7 fL fL (81.5-99.8) MCH 29.9 pg pg (27.9-34.1) MCHC 33.3 g/dL g/dL (32.4-36.7) RDW 14.1 % % (11.5-15.2) Plt Count 253 10^3/uL 10^3/uL (150-400) MPV 10.1 fL fL (8.7-11.7) Neut % (Auto) 55.1 % % (39.3-74.2) Lymph % (Auto) 33.6 % % (15.0-45.0) [place] % (Auto) 6.7 % % (4.5-13.0) Eos % (Auto) 3.8 % % (0.6-7.6) Baso % (Auto) 0.5 % % (0.3-1.7) Nucleat RBC Rel Count 0.0 % % (0.0-0.2) Absolute Neuts (auto) 4.19 10^3/uL 10^3/uL (1.70-6.50) Absolute Lymphs (auto) 2.55 10^3/uL 10^3/uL (1.00-3.00) Absolute Monos (auto) 0.51 10^3/uL 10^3/uL (0.30-0.80) Absolute Eos (auto) 0.29 10^3/uL 10^3/uL (0.03-0.40) Absolute Basos (auto) 0.04 10^3/uL 10^3/uL (0.02-0.10) Absolute Nucleated RBC 0.00 10^3/uL 10^3/uL (0-0.01) Immature Gran % 0.3 % % (0.0-1.1) Immature Gran # 0.02 10^3/uL 10^3/uL (0.00-0.10) POC Sodium 143 mEq/L mEq/L (135-145) Sodium 160 mEq/L H mEq/L (135-145) POC Potassium 4.4 mEq/L mEq/L (3.3-5.0) Potassium 4.2 mEq/L mEq/L (3.5-5.2) POC Chloride 104 mEq/L mEq/L (97-110) Chloride 111 mEq/L H mEq/L (97-110) Carbon Dioxide 27 mEq/l mEq/l (22-31) Anion Gap 22 mEq/L H mEq/L (6-14) POC BUN 18 mg/dL mg/dL (7-23) BUN 19 mg/dL mg/dL (7-23) Creatinine 0.9 mg/dL mg/dL (0.7-1.3) POC Creatinine 0.9 mg/dL mg/dL (0.7-1.3) Estimated GFR > 60 Glucose 107 mg/dL H mg/dL (70-100) POC Glucose 107 mg/dL H mg/dL (70-100) Calcium 8.3 mg/dL L mg/dL (8.5-10.4) Total Bilirubin 0.2 mg/dL mg/dL (0.1-1.4) AST 17 IU/L IU/L (17-59) ALT 25 IU/L IU/L (21-72) Alkaline Phosphatase 79 IU/L IU/L (38-126) NT-Pro-B Natriuret Pep 50 pg/mL pg/mL (0-125) Total Protein 5.6 g/dL L g/dL (6.3-8.2) Albumin 3.1 g/dL L g/dL (3.5-5.0) Point of Care Test Results: Chemistry 04/22/18 01:58 POC Sodium 143 mEq/L mEq/L (135-145) POC Potassium 4.4 mEq/L mEq/L (3.3-5.0) POC Chloride 104 mEq/L mEq/L (97-110) POC BUN 18 mg/dL mg/dL (7-23) POC Creatinine 0.9 mg/dL mg/dL (0.7-1.3) POC Glucose 107 mg/dL H mg/dL (70-100) ISTAT H&H 04/22/18 01:58 POC Hgb 13.9 gm/dL gm/dL (13.7-17.5) POC Hct 41 % % (40-51) Departure - Departure Disposition: Home, Routine, Self-Care Clinical Impression: Edema of both feet Condition: Good Instructions: Leg Edema (ED) Additional Instructions: Please return to the ER if your worse in any way. Referrals: [facility],. [Clinic] - As per Instructions
[2018-04-22 00:25] LABS: PLATELET COUNT 253 10^3/uL (150-400)
[2018-04-22 02:20] VITALS: BP 130/80
== END 2018-04-22 02:40 | disposition home or self-care (01) ==
DX: R60.0 Localized edema (principal); Z59.0 Homelessness
CPT/HCPCS: 82435-PO; 82565-PO; 82947-PO; 84132-PO; 84295-PO; 84520-PO; 85014-ER